=== PATIENT | male | born 1945 | race Caucasian/White ===

== ENCOUNTER 2018-04-13 07:30 | Day surgery (SDC) | payer MEDICARE ==
[~2018-04-13] VITALS: Ht 180.3 cm; Wt 97.5 kg
[~2018-04-13 07:30] MED LIST: HYDROCHLOROT25 MG PO; SIMVASTATIN40 MG PO; TAMSULOSIN HCL0.4 MG PO
[2018-04-13 09:54] VITALS: BP 132/72
== END 2018-04-13 10:22 | disposition home or self-care (01) ==
LOC: ENDO 07:30
PROVIDERS: ATTEND Surgery
PROC: 0DJD8ZZ Inspection of Lower Intestinal Tract, Via Natural or Artificial Opening Endoscopic (ICD-10-PCS; principal; 2018-04-13)
DX: Z12.11 Encounter for screening for malignant neoplasm of colon (principal); K57.30 Diverticulosis of large intestine without perforation or abscess without bleeding

== ENCOUNTER → 2018-05-17 | Outpatient (REF) | payer MEDICARE | END | disposition home or self-care (01) | LOC: LAB 08:04 | DX: Z85.46 Personal history of malignant neoplasm of prostate (principal) ==